=== PATIENT | female | born 1965 | race Caucasian/White ===

== ENCOUNTER 2017-04-07 17:54 | Emergency (ER) | payer OTHER ==
[~2017-04-07] VITALS: Ht 175.3 cm; Wt 150.0 kg
[~2017-04-07 17:54] MED LIST: CYCL-36 PO; IBUP100S30 PO; IBUP800 PO; LISI-363 PO; LISI-515 PO; RANI150 PO; ZANT150T2 PO; ZITH250T PO
[2017-04-07 17:59] VITALS: BP 173/77; PULSE 50; RESP 16; TEMP 97.8; O2SAT 97
[2017-04-07] MEDS ORDERED: SODIUM CHLOR 0.9% 1000 ML INJ 1,000 ML IV SCH (19:28)
[2017-04-07] MEDS ORDERED: FAMOTIDINE 20 MG/2 ML VIAL IV PUSH ONE (19:30)
[2017-04-07] MEDS ORDERED: METOCLOPRAMIDE HCL 10 MG/2 ML VIAL IV PUSH ONE (19:30)
[2017-04-07 20:28] VITALS: RESP 18; O2SAT 97
[2017-04-07 20:31] LABS: AUTOMATED NEUTROPHIL # 5.4 TH/MM3 (1.8-7.7); BASOPHIL % 0.2 % (0.0-2.0); EOSINOPHIL # 0.4 TH/MM3 (0-0.4); EOSINOPHIL % 4.1 % (0.0-4.0); HEMATOCRIT 42.1 % (35.0-46.0); HEMO FLAGS DIFF FINAL; LYMPH % 25.7 % (9.0-44.0); LYMPHOCYTE # 2.2 TH/MM3 (1.0-4.8); MEAN CELL VOLUME 89.1 FL (80.0-100.0); MEAN CORPUSCULAR HEMOGLOBIN 30.6 PG (27.0-34.0); MEAN CORPUSCULAR HGB CONC 34.3 % (32.0-36.0); MONO % 6.7 % (0.0-8.0); NEUT % 63.3 % (16.0-70.0); PLATELET COUNT 188 TH/MM3 (150-450); RED BLOOD COUNT 4.73 MIL/MM3 (4.00-5.30); RED CELL DISTRIBUTION WIDTH 13.3 % (11.6-17.2); WHITE BLOOD COUNT 8.5 TH/MM3 (4.0-11.0)
--- NOTE | 2017-04-07 20:40 | PD ---
HPI Chief Complaint: Cardiac Complaint Time Seen by Provider: 20:36 Travel History International Travel<30 days: No Contact w/Intl Traveler<30days: No Traveled to known affect area: No History of Present Illness HPI 52-year-old female that presents to the ED for evaluation of abnormal EKG. Per patient she was seen at an urgent care in or Monday secondary to nausea and vomiting that she developed yesterday and is improved today but she still feels nauseous. Per patient she also had epigastric pain which has improved today. Per patient she has cramping abdominal pain in the lower abdomen. Per patient the pain is minimal and 2 out of 10 only with touch. She states that she was seen at the urgent care and she had a EKG that showed an abnormality and she was brought here for evaluation of this. The patient she was told that she may have an electronic normal looking is what she was brought here. On her EKG here it appears that she had some PVCs. She denies any chest pain or shortness of breath. She denies ever being told anything like this before. Per patient she has not had anything to eat today and she's been able to drink some krista lan but otherwise nothing else. She states that she has not done so because she is afraid she is Throw up. She does have a history of hypertension. No history of diabetes. No chest pain. No abdominal pain other than the lower abdominal cramping with diarrhea. Per patient she has not had a bowel movement today but she had multiple once yesterday. No bleeding. No sick contacts. No recent travel. No fevers but chills yesterday. PFSH Past Medical History Diminished Hearing: No Hypertension: Yes Tetanus Vaccination: > 5 Years Influenza Vaccination: Yes ?: Not Menopausal: Yes Past Surgical History Gynecologic Surgery: Yes (HYSTERECTOMY) Hysterectomy: Yes Family History Family Breast Cancer: Yes Social History Alcohol Use: No Tobacco Use: No Substance Use: No Allergies-Medications (Allergen,Severity, Reaction): Coded Allergies: Sudafed (Verified Allergy, Unknown, 04/07/17) Heart starts to race Ephedrine (Verified Adverse Reaction, Severe, Tachycardia, 04/07/17) ALL EPHEDRINE FAMILY Reported Meds & Prescriptions Reported Meds & Active Scripts Active Reported Zantac (Ranitidine HCl) 150 Mg Tab 150 Mg PO DAILY Lisinopril 20 Mg Tab 20 Mg PO DAILY Review of Systems Except as stated in HPI: all other systems reviewed are Neg Physical Exam Narrative GENERAL: SKIN: Warm and dry. HEAD: Atraumatic. Normocephalic. EYES: Pupils equal and round. No scleral icterus. No injection or drainage. ENT: No nasal bleeding or discharge. Mucous membranes pink and moist. Tongue is midline. No uvula deviation. NECK: Trachea midline. No JVD. CARDIOVASCULAR: Regular rate and rhythm. No murmurs, S3, S4. RESPIRATORY: No accessory muscle use. Clear to auscultation. Breath sounds equal bilaterally. GASTROINTESTINAL: Abdomen soft, non-tender, nondistended. Hepatic and splenic margins not palpable. MUSCULOSKELETAL: Extremities without clubbing, cyanosis, or edema. No obvious deformities. Full range of motion of the upper and lower extremities bilaterally. 2+ pulses bilaterally. NEUROLOGICAL: Awake and alert. No obvious cranial nerve deficits. Motor grossly within normal limits. Five out of 5 muscle strength in the arms and legs. Normal speech. PSYCHIATRIC: Appropriate mood and affect; insight and judgment normal. Data Data Last Documented VS Vital Signs Date Time Temp Pulse Resp B/P Pulse Ox O2 Delivery O2 Flow Rate FiO2 04/07/17 20:28 18 97 Room Air 04/07/17 17:59 97.8 50 173/77 Orders Electrocardiogram (04/07/17 ) Vascular Access Team Consult/P PRN (04/07/17 19:03) Vascular Poc Ultrasound (04/07/17 ) Complete Blood Count With Diff (04/07/17 19:28) Comprehensive Metabolic Panel (04/07/17 19:28) Lipase (04/07/17 19:28) Iv Access Insert/Monitor (04/07/17 19:28) Ecg Monitoring (04/07/17 19:28) Oximetry (04/07/17 19:28) Sodium Chlor 0.9% 1000 Ml Inj (Ns 1000 M (04/07/17 19:28) Famotidine Inj (Pepcid Inj) (04/07/17 19:30) Metoclopramide Inj (Reglan Inj) (04/07/17 19:30) Magnesium (Mg) (04/07/17 19:28) Labs Laboratory Tests Test 04/07/17 20:00 White Blood Count 8.5 TH/MM3 Red Blood Count 4.73 MIL/MM3 Hemoglobin 14.5 GM/DL Hematocrit 42.1 % Mean Corpuscular Volume 89.1 FL Mean Corpuscular Hemoglobin 30.6 PG Mean Corpuscular Hemoglobin 34.3 % Concent Red Cell Distribution Width 13.3 % Platelet Count 188 TH/MM3 Mean Platelet Volume 10.2 FL Neutrophils (%) (Auto) 63.3 % Lymphocytes (%) (Auto) 25.7 % Monocytes (%) (Auto) 6.7 % Eosinophils (%) (Auto) 4.1 % Basophils (%) (Auto) 0.2 % Neutrophils # (Auto) 5.4 TH/MM3 Lymphocytes # (Auto) 2.2 TH/MM3 Monocytes # (Auto) 0.6 TH/MM3 Eosinophils # (Auto) 0.4 TH/MM3 Basophils # (Auto) 0.0 TH/MM3 CBC Comment DIFF FINAL Differential Comment Sodium Level 140 MEQ/L Potassium Level 3.6 MEQ/L Chloride Level 107 MEQ/L Carbon Dioxide Level 27.4 MEQ/L Anion Gap 6 MEQ/L Blood Urea Nitrogen 22 MG/DL Creatinine 0.87 MG/DL Estimat Glomerular Filtration 68 ML/MIN Rate Random Glucose 116 MG/DL Calcium Level 8.8 MG/DL Magnesium Level 2.1 MG/DL Total Bilirubin 0.5 MG/DL Aspartate Amino Transf 19 U/L (AST/SGOT) Alanine Aminotransferase 34 U/L (ALT/SGPT) Alkaline Phosphatase 48 U/L Total Protein 7.3 GM/DL Albumin 3.9 GM/DL Lipase 134 U/L MDM Medical Decision Making Medical Screen Exam Complete: Yes Emergency Medical Condition: Yes Medical Record Reviewed: Yes Interpretation(s) CBC & BMP Diagram 04/07/17 20:00 LFTs and lipase WNL EKG shows PVCs otherwise unremarcable. Read by me and attending. Differential Diagnosis Abnormal EKG versus dehydration versus electron tomography versus nausea and vomiting versus normal exam Narrative Course 52-year-old female that presents to the ED for evaluation of nausea and vomiting as well as abnormal EKG. Patient was properly examined and was found to have signs and symptoms consistent with appears to be possible gastroenteritis. Symptoms of a gastroenteritis appear to be improving and today she went to the urgent care see if she could get something for her nausea and she had an EKG that showed multiple PVCs. She has no chest pain and she had no chest pain yesterday. No other symptoms reported. Per patient she better although somewhat nauseous. Case was discussed in my attending Dr. kelly for agrees with plan. Labs were ordered. Patient was started on IV fluids and antiemetics. Labs showed Diagnosis Primary Impression: Nausea & vomiting Qualified Code: R11.2 - Non-intractable vomiting with nausea, unspecified vomiting type Additional Impression: Frequent PVCs Patient Instructions: General Instructions Additional Instructions: Take medication as prescribed. Follow with PCP. See ED for any worsening symptoms. Drink plenty of fluids as tolerated. Med/Other Pt SpecificInfo: Prescription(s) given Scripts Promethazine (Phenergan)25 Mg [id number] Mg PO Q6H PRN (NAUSEA OR VOMITING) #15 TAB Ref 0 Prov:Manuela Perales MD 04/07/17 Disposition: 01 DISCHARGE HOME Condition: Stable Hugh Wilson Apr 07, 2017 20:40
[2017-04-07 20:47] LABS: ANION GAP 6 MEQ/L (5-15); AST (GOT) 19 U/L (15-37); BICARBONATE 27.4 MEQ/L (21.0-32.0); BLOOD UREA NITROGEN 22 MG/DL (7-18); CHLORIDE 107 MEQ/L (98-107); GLOMERULAR FILTRATION RATE 68 ML/MIN (>89); MAGNESIUM 2.1 MG/DL (1.5-2.5); POTASSIUM 3.6 MEQ/L (3.5-5.1); SODIUM (NA) 140 MEQ/L (136-145)
[2017-04-07 20:48] LABS: ALT (GPT) 34 U/L (10-53)
[2017-04-07 20:51] LABS: ALKALINE PHOSPHATASE 48 U/L (45-117); TOTAL BILIRUBIN ADULT 0.5 MG/DL (0.2-1.0)
[2017-04-07] MEDS ORDERED: PROM25TA10 PO (21:01)
--- NOTE | 2017-04-07 21:05 | PD ---
Physical Exam Narrative GENERAL: Well-nourished, well-developed patient. SKIN: Warm and dry. HEAD: Normocephalic and atraumatic. EYES: No injection or drainage. ENT: No nasal drainage noted. NECK: Supple, trachea midline. CARDIOVASCULAR: Regular rate and rhythm RESPIRATORY: No increased effort. No accessory muscle use. GASTROINTESTINAL: Abdomen soft, non-tender, nondistended. EXTREMITIES: No edema. NEUROLOGICAL: Awake and alert. Motor and sensory grossly within normal limits. Normal speech. Data Data Last Documented VS Vital Signs Date Time Temp Pulse Resp B/P Pulse Ox O2 Delivery O2 Flow Rate FiO2 04/07/17 20:28 18 97 Room Air 04/07/17 17:59 97.8 50 173/77 Orders Electrocardiogram (04/07/17 ) Vascular Access Team Consult/P PRN (04/07/17 19:03) Vascular Poc Ultrasound (04/07/17 ) Complete Blood Count With Diff (04/07/17 19:28) Comprehensive Metabolic Panel (04/07/17 19:28) Lipase (04/07/17 19:28) Iv Access Insert/Monitor (04/07/17 19:28) Ecg Monitoring (04/07/17 19:28) Oximetry (04/07/17 19:28) Sodium Chlor 0.9% 1000 Ml Inj (Ns 1000 M (04/07/17 19:28) Famotidine Inj (Pepcid Inj) (04/07/17 19:30) Metoclopramide Inj (Reglan Inj) (04/07/17 19:30) Magnesium (Mg) (04/07/17 19:28) Labs Laboratory Tests Test 04/07/17 20:00 White Blood Count 8.5 TH/MM3 Red Blood Count 4.73 MIL/MM3 Hemoglobin 14.5 GM/DL Hematocrit 42.1 % Mean Corpuscular Volume 89.1 FL Mean Corpuscular Hemoglobin 30.6 PG Mean Corpuscular Hemoglobin 34.3 % Concent Red Cell Distribution Width 13.3 % Platelet Count 188 TH/MM3 Mean Platelet Volume 10.2 FL Neutrophils (%) (Auto) 63.3 % Lymphocytes (%) (Auto) 25.7 % Monocytes (%) (Auto) 6.7 % Eosinophils (%) (Auto) 4.1 % Basophils (%) (Auto) 0.2 % Neutrophils # (Auto) 5.4 TH/MM3 Lymphocytes # (Auto) 2.2 TH/MM3 Monocytes # (Auto) 0.6 TH/MM3 Eosinophils # (Auto) 0.4 TH/MM3 Basophils # (Auto) 0.0 TH/MM3 CBC Comment DIFF FINAL Differential Comment Sodium Level 140 MEQ/L Potassium Level 3.6 MEQ/L Chloride Level 107 MEQ/L Carbon Dioxide Level 27.4 MEQ/L Anion Gap 6 MEQ/L Blood Urea Nitrogen 22 MG/DL Creatinine 0.87 MG/DL Estimat Glomerular Filtration 68 ML/MIN Rate Random Glucose 116 MG/DL Calcium Level 8.8 MG/DL Magnesium Level 2.1 MG/DL Total Bilirubin 0.5 MG/DL Aspartate Amino Transf 19 U/L (AST/SGOT) Alanine Aminotransferase 34 U/L (ALT/SGPT) Alkaline Phosphatase 48 U/L Total Protein 7.3 GM/DL Albumin 3.9 GM/DL Lipase 134 U/L MDM Supervised Visit with VIVIANA: Yes Interpretation(s) CBC & BMP Diagram 04/07/17 20:00 EKG is sinus with PVCs without STEMI criteria Narrative Course I, Dr. phillips, have reviewed the advance practice practitioner's documentation and am in agreement, met with the patient face to face, made the diagnosis, and the medical decision making was done by me. *My assessment and Findings: 52-year-old female presents with vomiting and diarrhea over the past couple of days. She states that she starting to feel better. She was sent here from an urgent care for abnormal EKG with PVCs. She has had no emesis here. Electrolytes are normal. She agrees to close follow- up with primary with cardiology referral given these are currently asymptomatic , given return instructions, will avoid Zofran given urgent care EKG with QTC prolongation which has resolved here Diagnosis Primary Impression: Nausea & vomiting Qualified Code: R11.2 - Non-intractable vomiting with nausea, unspecified vomiting type Additional Impression: Frequent PVCs Patient Instructions: General Instructions Additional Instruction: Take medication as prescribed. Follow with PCP tomorrow. See ED for any worsening symptoms. Drink plenty of fluids as tolerated. Med/Other Pt SpecificInfo: Prescription(s) given Scripts Promethazine (Phenergan)25 Mg [id number] Mg PO Q6H PRN (NAUSEA OR VOMITING) #15 TAB Ref 0 Prov:Manuela Phillips MD 04/07/17 Disposition: 01 DISCHARGE HOME Condition: Stable Manuela Phillips MD Apr 07, 2017 21:05
--- NOTE | 2017-04-08 12:49 | EKG ---
Date Performed: 04/07/2017 Time Performed: 18:13:57 PTAGE: 52 years EKG: Sinus rhythm WITH FREQUENT VENTRICULAR PREMATURE COMPLEXES POSSIBLE LEFT ATRIAL ENLARGEMENT NONSPECIFIC T-WAVE AB NORMALITY ABNORMAL RHYTHM ECG NO PREVIOUS TRACING DOCTOR: Luis Eduardo Guerrero Interpretating Date/Time 04/08/2017 12:43:35
== END 2017-04-07 22:12 | disposition home or self-care (01) ==
LOC: NEPC 17:54
DX: I49.3 Ventricular premature depolarization (principal); R11.2 Nausea with vomiting, unspecified; I10 Essential (primary) hypertension
CPT/HCPCS: 80053; 83690; 83735; 85025; 93005; 96374; 96375; 99285; J2765; J7030

== ENCOUNTER → 2017-05-08 | Outpatient (CLI) | payer OTHER ==
[~2017-05-08] MED LIST changes: -CYCL-36 PO; -IBUP100S30 PO; -IBUP800 PO; -LISI-363 PO; +PROM25TA10 PO; -RANI150 PO; -ZITH250T PO
[2017-05-08 13:15] LABS: HDL CHOLESTEROL 51.1 MG/DL (40.0-60.0)
== END ==
LOC: CLAB 12:11
PROVIDERS: ATTEND Internal Medicine Interventional Cardiology
DX: E78.00 Pure hypercholesterolemia, unspecified (principal); I11.9 Hypertensive heart disease without heart failure; R00.2 Palpitations; I49.9 Cardiac arrhythmia, unspecified; R53.83 Other fatigue; E66.09 Other obesity due to excess calories
CPT/HCPCS: 36415; 80061; 84443; 84450; 84460

== ENCOUNTER → 2017-05-15 | Outpatient (CLI) | payer OTHER ==
--- NOTE | 2017-05-18 08:45 | HM ---
Date Performed: 05/15/2017 Time Performed: 09:31:00 HOOKUP DATE: 05/15/17 09:31:00 AM Mon ANALYSIS START TIME: 05/15/2017 9:36:00 AM ANALYSIS END TIME: 05/16/2017 9:39:59 AM PATIENT AGE: 52 PATIENT HEIGHT PATIENT WEIGHT DRUG LIST PATIENT DIAGNOSIS TEST NARRATIVE: The patient's average heart rate was 80 BPM. Heart rates greater than 120 B PM were noted < 1% of the time. No episodes of bradycardia were noted. No pauses exceeding 2.0 s econds were noted. 95136 ventricular ectopics, which represented 27% of the total beat count, wer e noted. The highest ventricular ectopic frequency occurred from 04:00 AM to 05:00 AM Tue. During t his time 2239 VE(s) occurred. [place] [address] isolated beat(s), as 131 c ouplet(s) and as 33 run(s). Some of the ventricular beats occurred in bigeminal cycles. 7936 sup raventricular ectopics, which represented 7% of the total beat count, were noted. The highest suprav entricular ectopic frequency occurred from 01:00 AM to 02:00 AM Tue. During this time 1763 SVE(s) oc curred. No episodes of ST depression (defined as -1.0 mm or more) were noted in channel 1. No ep isodes of ST depression (defined as -1.0 mm or more) were noted in channel 2. No episodes of ST depr ession (defined as -1.0 mm or more) were noted in channel 3. TEST INTERPRETATION: The underlying rhythm is Sinus rhythm with frequent PVC's. No definite ventricular tachyarrhythmias are seen. Baseline artefact occasion ally makes rhythm assessment very difficult. Signed by : Pancho Farnsworth
== END ==
LOC: HCAV 08:27
PROVIDERS: ATTEND Internal Medicine Interventional Cardiology
DX: I49.9 Cardiac arrhythmia, unspecified (principal); R00.2 Palpitations
CPT/HCPCS: 93225; 93226

== ENCOUNTER → 2017-08-29 | Outpatient (CLI) | payer OTHER ==
[2017-08-29 10:12] LABS: HEMATOCRIT 40.6 % (35.0-46.0); MEAN CELL VOLUME 88.8 FL (80.0-100.0); MEAN CORPUSCULAR HEMOGLOBIN 30.3 PG (27.0-34.0); MEAN CORPUSCULAR HGB CONC 34.2 % (32.0-36.0); PLATELET COUNT 217 TH/MM3 (150-450); RED BLOOD COUNT 4.57 MIL/MM3 (4.00-5.30); RED CELL DISTRIBUTION WIDTH 12.9 % (11.6-17.2); REVIEW FLAG FINAL; WHITE BLOOD COUNT 6.9 TH/MM3 (4.0-11.0)
[2017-08-29 10:38] LABS: ANION GAP 7 MEQ/L (5-15); AST (GOT) 20 U/L (15-37); BICARBONATE 27.5 MEQ/L (21.0-32.0); BLOOD UREA NITROGEN 16 MG/DL (7-18); CHLORIDE 105 MEQ/L (98-107); GLOMERULAR FILTRATION RATE 71 ML/MIN (>89); GLUCOSE,FASTING 121 MG/DL (74-99); POTASSIUM 4.1 MEQ/L (3.5-5.1); SODIUM (NA) 139 MEQ/L (136-145)
[2017-08-29 10:39] LABS: ALT (GPT) 34 U/L (10-53)
[2017-08-29 10:49] LABS: ALKALINE PHOSPHATASE 62 U/L (45-117); TOTAL BILIRUBIN ADULT 0.4 MG/DL (0.2-1.0)
== END ==
LOC: CLAB 09:30
PROVIDERS: ATTEND Internal Medicine Interventional Cardiology
DX: E78.2 Mixed hyperlipidemia (principal); I11.9 Hypertensive heart disease without heart failure; R00.2 Palpitations; I49.9 Cardiac arrhythmia, unspecified; K21.9 Gastro-esophageal reflux disease without esophagitis; S33.8XXA Sprain of other parts of lumbar spine and pelvis, initial encounter; X58.XXXA Exposure to other specified factors, initial encounter; E66.3 Overweight; Z83.1 Family history of other infectious and parasitic diseases
CPT/HCPCS: 36415; 80053; 84443; 85027

== ENCOUNTER → 2018-01-19 | Outpatient (CLI) | payer OTHER ==
[2018-01-19 09:01] LABS: BICARBONATE 25.8 MEQ/L (21.0-32.0); CALCIUM 8.6 MG/DL (8.5-10.1); CREATININE 0.87 MG/DL (0.50-1.00)
== END ==
LOC: CLAB 07:59
PROVIDERS: ATTEND Internal Medicine Interventional Cardiology
DX: E78.2 Mixed hyperlipidemia (principal); I11.9 Hypertensive heart disease without heart failure; R00.2 Palpitations; I49.9 Cardiac arrhythmia, unspecified
CPT/HCPCS: 36415; 80048

== ENCOUNTER 2018-02-11 14:14 | Emergency (ER) | payer OTHER ==
[~2018-02-11] VITALS: Ht 175.3 cm; Wt 159.0 kg
[2018-02-11 14:33] VITALS: BP 123/71; PULSE 78; RESP 18; TEMP 97.4; O2SAT 99
[2018-02-11] MEDS ORDERED: ATOR20TA15 PO (14:48)
[2018-02-11] MEDS ORDERED: METO50TA PO (14:48)
[2018-02-11] MEDS ORDERED: HYDR12.57 PO (14:48)
[2018-02-11 14:52] VITALS: BP 93/51; PULSE 80; RESP 16; TEMP 97.6; O2SAT 97
[2018-02-11] MEDS ORDERED: SODIUM CHLOR 0.9% 1000 ML INJ 1,000 ML IV ONE (15:29)
[2018-02-11] MEDS ORDERED: ONDANSETRON ODT 4 MG TAB PO/SL ONE (15:30)
[2018-02-11] MEDS ORDERED: SODIUM CHLORIDE 0.9% FLUSH 10 ML FLUSH IVF PRN (15:30)
[2018-02-11 15:37] VITALS: O2SAT 98
--- NOTE | 2018-02-11 16:07 | RADRPT ---
EXAM DATE/TIME: 02/11/2018 15:34 [facility] COMPARISON: No previous studies available for comparison. INDICATIONS : Palpitations MEDICAL HISTORY : Hypertension. Diabetes mellitus type II. SURGICAL HISTORY : ENCOUNTER: Initial ACUITY: 1 day PAIN SCORE: 0/10 LOCATION: chest FINDINGS: No significant focal pleural or parenchymal opacities. Cardiac silhouette is borderline enlarged. Oss eous structures are intact. CONCLUSION: 1. Borderline cardiac silhouette. 2. Otherwise, no acute abnormality. Talha Jean MD on February 11, 2018 at 16:04 Board Certified Radiologist. This report was verified electronically.
[2018-02-11 16:13] LABS: AUTOMATED NEUTROPHIL # 13.1 TH/MM3 (1.8-7.7); BASOPHIL % 0.2 % (0.0-2.0); EOSINOPHIL # 0.1 TH/MM3 (0-0.4); EOSINOPHIL % 0.4 % (0.0-4.0); HEMATOCRIT 50.5 % (35.0-46.0); HEMOGLOBIN 17.2 GM/DL (11.6-15.3); LYMPH % 9.4 % (9.0-44.0); LYMPHOCYTE # 1.4 TH/MM3 (1.0-4.8); MEAN CELL VOLUME 88.5 FL (80.0-100.0); MEAN CORPUSCULAR HEMOGLOBIN 30.2 PG (27.0-34.0); MEAN CORPUSCULAR HGB CONC 34.1 % (32.0-36.0); MEAN PLATELET VOLUME 10.2 FL (7.0-11.0); MONO % 3.1 % (0.0-8.0); MONOCYTE # 0.5 TH/MM3 (0-0.9); NEUT % 86.9 % (16.0-70.0); PLATELET COUNT 246 TH/MM3 (150-450); RED BLOOD COUNT 5.71 MIL/MM3 (4.00-5.30); RED CELL DISTRIBUTION WIDTH 13.3 % (11.6-17.2)
[2018-02-11] MEDS ORDERED: DICYCLOMINE HCL 20 MG/2 ML VIAL IM ONE (16:15)
[2018-02-11 16:50] LABS: BLOOD UREA NITROGEN 22 MG/DL (7-18)
[2018-02-11 16:51] LABS: ALBUMIN 3.9 GM/DL (3.4-5.0); ALKALINE PHOSPHATASE 61 U/L (45-117); ALT (GPT) 27 U/L (10-53); AST (GOT) 15 U/L (15-37); CALCIUM 9.1 MG/DL (8.5-10.1); CREATININE 1.08 MG/DL (0.50-1.00); GLOMERULAR FILTRATION RATE 53 ML/MIN (>89); GLUCOSE,RANDOM 145 MG/DL (74-106); TOTAL PROTEIN 7.5 GM/DL (6.4-8.2)
[2018-02-11 16:52] LABS: BICARBONATE 28.6 MEQ/L (21.0-32.0); CHLORIDE 104 MEQ/L (98-107); SODIUM (NA) 143 MEQ/L (136-145); TOTAL BILIRUBIN ADULT 0.5 MG/DL (0.2-1.0); TROPONIN I LESS THAN 0.02 NG/ML (0.02-0.05)
[2018-02-11 17:03] LABS: BACTERIA, URINE RARE /hpf; BILIRUBIN, URINE NEG (NEG); BLOOD, URINE TRACE (NEG); GLUCOSE,URINE NEG (NEG); KETONE, URINE TRACE mg/dL (NEG); MUCUS URINE FEW /lpf (OCC); NITRITE,URINE NEG (NEG); SQUAMOUS EPITHELIAL CELL URINE 5 /hpf (0-5); URINE COLOR YELLOW (YELLW/STRAW); URINE LEUKOCYTE ESTERASE NEG (NEG)
[2018-02-11] MEDS ORDERED: IOHEXOL 350 MG/ML 10 ML VIAL (for RAD DIAG) IVCONTRAST ONE (18:12)
--- NOTE | 2018-02-11 18:38 | RADRPT ---
EXAM DATE/TIME: 02/11/2018 18:05 [facility] COMPARISON: No previous studies available for comparison. INDICATIONS : Abdominal pain with nausea and vomiting. IV CONTRAST: 98 cc Omnipaque 350 (iohexol) IV ORAL CONTRAST: No oral contrast ingested. RADIATION DOSE: 35.73 CTDIvol (mGy) ; Patient body habitus MEDICAL HISTORY : Hypertension. Gastroesophageal reflux disease. SURGICAL HISTORY : Hysterectomy. ENCOUNTER: Initial ACUITY: 1 week PAIN SCALE: 6/10 LOCATION: abdomen TECHNIQUE: Volumetric scanning of the abdomen and pelvis was performed. Using automated exposure control and ad justment of the mA and/or kV according to patient size, radiation dose was kept as low as reasonably achievable to obtain optimal diagnostic quality images. DICOM format image data is available electro nically for review and comparison. FINDINGS: LOWER LUNGS: The visualized lower lungs are clear. LIVER: Diffusely decreased hepatic density. No focal mass or intrahepatic ductal dilatation. Trace amount of ascites with fluid predominantly along the margins of the spleen and liver. No calcified gallstones. SPLEEN: Normal size without lesion. PANCREAS: Within normal limits. KIDNEYS: Normal in size and shape. There is no mass, stone or hydronephrosis. ADRENAL GLANDS: Within normal limits. VASCULAR: There is no aortic aneurysm. BOWEL/MESENTERY: Several loops of nondistended fluid-filled mid to distal jejunum with slight bowel wall prominence. T he colon is decompressed and unremarkable. ABDOMINAL WALL: Within normal limits. RETROPERITONEUM: There is no lymphadenopathy. BLADDER: Decompressed. REPRODUCTIVE: Uterus is surgically absent. INGUINAL: There is no lymphadenopathy or hernia. MUSCULOSKELETAL: Within normal limits for patient age. CONCLUSION: 1. Hepatic steatosis with trace ascites. 2. Several loops of nondistended fluid-filled MID to distal jejunum with slight wall prominence. Find ings are nonspecific but may reflect enteritis or diffuse hypoalbuminemia. Talha Jean MD on February 11, 2018 at 18:31 Board Certified Radiologist. This report was verified electronically.
[2018-02-11] MEDS ORDERED: METR-1 PO (18:43)
[2018-02-11] MEDS ORDERED: DICY10 PO (18:43)
[2018-02-11] MEDS ORDERED: CIPR-9 PO (18:43)
[2018-02-11] MEDS ORDERED: ZOFR4TAB3 SL (18:43)
--- NOTE | 2018-02-11 18:43 | PD ---
HPI Chief Complaint: Syncope/Near-Syncope Time Seen by Provider: 14:41 Travel History International Travel<30 days: No Contact w/Intl Traveler<30days: No Traveled to known affect area: No History of Present Illness HPI Patient is a 52-year-old female presents emergency department for evaluation of nausea vomiting and diarrhea for the past week. She states she has had one of these episodes in the past. She states occasionally gets a severe that she feels like she is going to pass out. She is talked with her doctor about this in the past and was told that she probably was having a vasovagal reaction. She is not had a recent colonoscopy, no chest pain or shortness of breath no palpitations no abdominal pain but does endorse some abdominal cramping from time to time feeling like she is going to have a diarrheal bowel movement. States her stool has been brown without any melena or blood, she is only been vomiting food products and then dry heaves no blood no bile in her emesis. Symptoms are moderate, for the past week, constant, associated signs symptoms as above PFSH Past Medical History Heart Rhythm Problems: Yes Diminished Hearing: No Hypertension: Yes Sleep Apnea: Yes ?: Not Menopausal: Yes Past Surgical History Gynecologic Surgery: Yes (HYSTERECTOMY) Hysterectomy: Yes Social History Alcohol Use: No Tobacco Use: No Substance Use: No Allergies-Medications (Allergen,Severity, Reaction): Coded Allergies: pseudoephedrine (Unverified Allergy, Unknown, 02/11/18) Heart starts to race ephedrine (Unverified Adverse Reaction, Severe, Tachycardia, 02/11/18) ALL EPHEDRINE FAMILY Reported Meds & Prescriptions Reported Meds & Active Scripts Active Flagyl (Metronidazole) 500 Mg Tab 500 Mg PO BID 7 Days Cipro (Ciprofloxacin HCl) 500 Mg Tab 500 Mg PO BID 7 Days Zofran Odt (Ondansetron Odt) 4 Mg Tab 4 Mg SL Q8HR PRN Bentyl (Dicyclomine HCl) 10 Mg Cap 10 Mg PO TID PRN Reported Hydrochlorothiazide 12.5 Mg Cap 12.5 Mg PO DAILY Atorvastatin (Atorvastatin Calcium) 20 Mg Tab 20 Mg PO HS Metoprolol Tartrate 50 Mg Tab 50 Mg PO DAILY Zantac (Ranitidine HCl) 150 Mg Tab 150 Mg PO DAILY Lisinopril 20 Mg Tab 20 Mg PO DAILY Review of Systems Except as stated in HPI: all other systems reviewed are Neg Physical Exam Narrative GENERAL: Well-developed obese female in no obvious distress. SKIN: Focused skin assessment warm/dry. HEAD: Atraumatic. Normocephalic. EYES: Pupils equal and round. No scleral icterus. No injection or drainage. ENT: No nasal bleeding or discharge. Mucous membranes pink and moist. NECK: Trachea midline. No JVD. CARDIOVASCULAR: Regular rate and rhythm. No murmur appreciated. RESPIRATORY: No accessory muscle use. Clear to auscultation. Breath sounds equal bilaterally. GASTROINTESTINAL: Abdomen is soft nontender no rebound no percussive tenderness no CVA tenderness. MUSCULOSKELETAL: No obvious deformities. No clubbing. No cyanosis. No edema. NEUROLOGICAL: Awake and alert. No obvious cranial nerve deficits. Motor grossly within normal limits. Normal speech. PSYCHIATRIC: Appropriate mood and affect; insight and judgment normal. Data Data Last Documented VS Vital Signs Date Time Temp Pulse Resp B/P (MAP) Pulse Ox O2 Delivery O2 Flow Rate FiO2 02/11/18 18:54 02/11/18 15:37 98 Room Air 02/11/18 14:52 97.6 80 16 Orders Orders Electrocardiogram (02/11/18 15:29) Complete Blood Count With Diff (02/11/18 15:29) Comprehensive Metabolic Panel (02/11/18 15:29) Ckmb (Isoenzyme) Profile (02/11/18 15:29) Troponin I (02/11/18 15:29) Urinalysis - C+S If Indicated (02/11/18 15:29) Chest, Single Ap (02/11/18 15:29) Ecg Monitoring (02/11/18 15:29) Iv Access Insert/Monitor (02/11/18 15:29) Oximetry (02/11/18 15:29) Ondansetron Odt (Zofran Odt) (02/11/18 15:30) Sodium Chloride 0.9% Flush (Ns Flush) (02/11/18 15:30) Sodium Chlor 0.9% 1000 Ml Inj (Ns 1000 M (02/11/18 15:29) Dicyclomine Inj (Bentyl Inj) (02/11/18 16:15) Ct Abd/Pel W Iv Contrast(Rout) (02/11/18 ) Iohexol 350 Inj (Omnipaque 350 Inj) (02/11/18 18:12) Ed Discharge Order (02/11/18 18:43) Labs Laboratory Tests Test 02/11/18 15:55 02/11/18 16:40 White Blood Count 15.0 TH/MM3 Red Blood Count 5.71 MIL/MM3 Hemoglobin 17.2 GM/DL Hematocrit 50.5 % Mean Corpuscular Volume 88.5 FL Mean Corpuscular Hemoglobin 30.2 PG Mean Corpuscular Hemoglobin Concent 34.1 % Red Cell Distribution Width 13.3 % Platelet Count 246 TH/MM3 Mean Platelet Volume 10.2 FL Neutrophils (%) (Auto) 86.9 % Lymphocytes (%) (Auto) 9.4 % Monocytes (%) (Auto) 3.1 % Eosinophils (%) (Auto) 0.4 % Basophils (%) (Auto) 0.2 % Neutrophils # (Auto) 13.1 TH/MM3 Lymphocytes # (Auto) 1.4 TH/MM3 Monocytes # (Auto) 0.5 TH/MM3 Eosinophils # (Auto) 0.1 TH/MM3 Basophils # (Auto) 0.0 TH/MM3 CBC Comment DIFF FINAL Differential Comment Blood Urea Nitrogen 22 MG/DL Creatinine 1.08 MG/DL Random Glucose 145 MG/DL Total Protein 7.5 GM/DL Albumin 3.9 GM/DL Calcium Level 9.1 MG/DL Alkaline Phosphatase 61 U/L Aspartate Amino Transf (AST/SGOT) 15 U/L Alanine Aminotransferase (ALT/SGPT) 27 U/L Total Bilirubin 0.5 MG/DL Sodium Level 143 MEQ/L Potassium Level 4.2 MEQ/L Chloride Level 104 MEQ/L Carbon Dioxide Level 28.6 MEQ/L Anion Gap 10 MEQ/L Estimat Glomerular Filtration Rate 53 ML/MIN Total Creatine Kinase 94 U/L Troponin I LESS THAN 0.02 NG/ML Urine Color YELLOW Urine Turbidity HAZY Urine pH 6.0 Urine Specific [place] 1.027 Urine Protein TRACE mg/dL Urine Glucose (UA) NEG mg/dL Urine Ketones TRACE mg/dL Urine Occult Blood TRACE Urine Nitrite NEG Urine Bilirubin NEG Urine Urobilinogen LESS THAN 2.0 MG/DL Urine Leukocyte Esterase NEG Urine RBC 1 /hpf Urine WBC 2 /hpf Urine Squamous Epithelial Cells 5 /hpf Urine Bacteria RARE /hpf Urine Mucus FEW /lpf Microscopic Urinalysis Comment CULT NOT INDICATED MDM Medical Decision Making Medical Screen Exam Complete: Yes Emergency Medical Condition: Yes Differential Diagnosis Acute abdomen unlikely, dehydration, diverticulitis, colitis, ileitis, irritable bowel disease per Narrative Course Patient room to the emergency department, she does not appear toxic, her labs do show an elevation of white blood cell count to 15,000, there is also an elevation of her RBCs indicating some level of dehydration, she was given Bentyl Zofran and IV fluids, discussed CAT scan and she is agreeable showing the following results Last 24 hours Impressions Chest X-Ray 02/11/18 1529 Signed Impressions: Service Date/Time: Sunday, February 11, 2018 15:34 - CONCLUSION: 1. Borderline cardiac silhouette. 2. Otherwise, no acute abnormality. Talha Jean MD Abdomen/Pelvis CT 02/11/18 0000 Signed Impressions: Service Date/Time: Sunday, February 11, 2018 18:05 - CONCLUSION: 1. Hepatic steatosis with trace ascites. 2. Several loops of nondistended fluid-filled MID to distal jejunum with slight wall prominence. Findings are nonspecific but may reflect enteritis or diffuse hypoalbuminemia. Talha Jean MD Discussed the fatty liver disease and the patient does not have a history of heavy drinking. Discussed there is some fluid around the bowel and it does appear inflamed, could be consistent with ascites or could be an ileitis. There is no obvious perforation. The patient appears nontoxic and I think that she is amenable to outpatient therapy for the moment. Discussed that she needs follow-up with a sleeper cutter empiric therapy with antibiotics and symptomatic management. Discussed return to ED criteria follow-up with her primary care physician. She is stable for Diagnosis Primary Impression: Enteritis Referrals: Aliyah Chaudhari MD Med/Other Pt SpecificInfo: Prescription(s) given Scripts Metronidazole (Flagyl) 500 Mg Tab 500 MG PO BID for Infection for 7 Days, #14 TAB 0 Refills Prov: Hugh Mccarthy MD 02/11/18 Ciprofloxacin (Cipro) 500 Mg Tab 500 MG PO BID for Infection for 7 Days, #14 TAB 0 Refills Prov: Hugh Mccarthy MD 02/11/18 Ondansetron Odt (Zofran Odt) 4 Mg Tab 4 MG SL Q8HR Y for Nausea/Vomiting, #20 TAB 0 Refills Prov: Hugh Mccarthy MD 02/11/18 Dicyclomine (Bentyl) 10 Mg Cap 10 MG PO TID Y for ABDOMINAL CRAMPING, #30 CAP 0 Refills Prov: Hugh Mccarthy MD 02/11/18 Disposition: 01 DISCHARGE HOME Condition: Stable Hugh Mccarthy MD February 11, 2018 18:43
--- NOTE | 2018-02-11 22:47 | EKG ---
Date Performed: 02/11/2018 Time Performed: 15:50:44 PTAGE: 52 years EKG: Sinus rhythm WITH FREQUENT VENTRICULAR PREMATURE COMPLEXES LEFT ATRIAL ENLARGEMENT NONSPECIFIC ST & T-WAVE ABNORM ALITY ABNORMAL ECG NO PREVIOUS TRACING DOCTOR: Pancho Farnsworth Interpretating Date/Time 02/11/2018 22:46:56
== END 2018-02-11 19:30 | disposition home or self-care (01) ==
LOC: NEPC 14:14
DX: K52.9 Noninfective gastroenteritis and colitis, unspecified (principal); I10 Essential (primary) hypertension; R94.31 Abnormal electrocardiogram [ECG] [EKG]; K76.0 Fatty (change of) liver, not elsewhere classified
CPT/HCPCS: 71045; 74177; 80053; 81001; 82550; 84484; 85025; 93005; 96360; 96372; 99285; J0500; J7030; Q9967